=== PATIENT | female | born 1945 | race Caucasian/White ===

== ENCOUNTER 2016-12-18 11:52 | Emergency (ER) | payer MEDICARE ==
[~2016-12-18 11:52] MED LIST: AMIODARONE PO; ATENOLOL; ATENOLOL PO; AUGMENTIN875 MG PO; B-COMPLEX W/VIT1 TA1 PO; BUDEPRION XL150 MG PO; BUPROPION XL150 MG PO; CARDIZEM CD; CARDIZEM CD120 M1 PO; CARDIZEM SR PO; CELEBREX; CELEBREX PO; CELECOXIB200 MG PO; CLARINEX5 MG; CLARINEX5 MG PO; CLINDAMYCIN HC300 MG PO; COUMADIN; COUMADIN PO; COUMADIN6 MG PO; CRESTOR PO; DIATX TABLET5 MG; DOXYCYCLINE HY100 M1 PO; EFFEXOR; FLONASE ALLERG9.9 ML; FLONASE16 GM; GLUCOPHAGE500 M1 PO; GLUCOPHAGE500 MG PO; GUAIFENESIN; HUMIBID-LA600 MG DOB; HYDROCODON-ACE1 EAC7 PO; HYDROCODON-ACE1 EACH PO; IMMODIUM PO; LIPITOR; LISINOPRIL20 MG PO; LYRICA PO; METFORMIN; MULTI-VITAMIN1 TAB; NAMENDA10 MG PO; NASONEX17 GM; NEPHROCAPS QT1 EACH PO; NUCYNTA100 MG PO; PHENERGAN25 M1 PO; PRISTIQ50 MG PO; SELENIUM 100 MCG; VICODIN 5/500 T1 TAB; VICODIN 5/500 T1 TAB PO; VITAL-D RX TABL1 TAB PO; VITAMIN A & D; VITAMIN D 4001 UDTAB; VITAMIN D400 UNI2 PO; WELLBUTRIN PO; WELLBUTRIN XL; ZETIA; ZETIA PO
== END 2016-12-18 12:05 | disposition home or self-care (01) ==
LOC: CED 11:52
DX: S60.411A Abrasion of left index finger, initial encounter (principal); L03.012 Cellulitis of left finger; Z88.2 Allergy status to sulfonamides; W55.01XA Bitten by cat, initial encounter; Y92.9 Unspecified place or not applicable
CPT/HCPCS: 99283

== ENCOUNTER 2017-04-03 16:40 | Emergency (ER) | payer MEDICARE ==
--- NOTE | ~2017-04-03 | EKG ---
PATIENT: SIRIA FRANCOIS UNIT #: [id number] Ventricular Rate: 70 BPM Atrial Rate: 70 BPM P-R Interval: 120 ms QRS Duration: 100 ms Q-T Interval: 466 ms QTC Calculation(Bezet): 503 ms P [place]: 49 degrees Calculated R [place]: 26 degrees Calculated T [place]: 33 degrees Diagnosis Line: Sinus rhythm with occasional Premature ventricular Diagnosis Line: complexes Diagnosis Line: Otherwise normal ECG Diagnosis Line: When compared with ECG of 11-MAY-2016 07:27, Diagnosis Line: Premature ventricular complexes are now Present Diagnosis Line: QT has lengthened Diagnosis Line: Poor data quality Diagnosis Line: Confirmed by CHINTAN PANDEY MD ([id number]) on 04/04/2017 Diagnosis Line: 11:47:13 PM INTERPRETING MD: DANNIE PADGETT
--- NOTE | ~2017-04-03 | CT71 ---
[facility] A Service of [facility] RADIOLOGY TEXT RESULTS PATIENT: SIRIA FRANCOIS LOCATION: [facility] : 49 UNIT #: [id number] AGE: [address]: Gege Garcia MD SEX: F ORDER DR: [id number] [facility] [address] [place], [place] [address] [id number] E MR#: [id number] Acc #: [id number] NAME: SIRIA FRANCOIS : 1945 SEX: F STUDY DATE/TIME: 04/03/2017 18:21 UNIT: [facility] ROOM: STUDY DESCRIPTION: CT Head Wo Contrast Attending Physician: Gege Garcia M.D. Ordering Physician: Gege Garcia M.D. Primary Care Physician: Chico Magdaleno M.D. MEDICAL IMAGING REPORT This report is preliminary unless electronic signature is present EXAM CT head without contrast dated 04/03/2017. COMPARISON CT head without contrast dated 05/07/2016. HISTORY Patient fell and hit head 3-4 weeks ago. Dizziness, weakness since this morning. FINDINGS CT of the head was obtained without contrast in the axial plane as per the protocol. This CT exam was performed with one or more of the following radiation dose reduction techniques: automatic exposure control, adjustment of mA and/or kV according to patient size, and iterative reconstruction. No acute intracranial hemorrhage, space-occupying mass, mass effect, midline shift or hydrocephalus. Atherosclerotic arteriovascular calcifications are noted in the [place], particularly involving bilateral cavernous ICA extending to the supraclinoid portions. Severe right and complete opacification of the left maxillary antra are noted. There is also mucosal thickening in bilateral ethmoid sinuses. Correlate with sinus disease. Nasal septum is deviated to the left. Imaged orbits with the ocular structures are unremarkable. Status post bilateral cataract surgery. IMPRESSION 1. No demonstrable acute intracranial abnormality. 2. Paranasal sinus mucosal thickening is noted, severe on the right and completely opacified left maxillary antra. Correlate with sinusitis. They may also contain polyps, particularly in the left. Dictated by... Billy Hawthorne M.D[facility] A Service of [facility] & [facility] RADIOLOGY TEXT RESULTS PATIENT: SIRIA FRANCOIS LOCATION: [facility] : 49 UNIT #: [id number] AGE: [address]: Gege Garcia MD SEX: F ORDER DR: THIS IS AN ELECTRONICALLY VERIFIED REPORT Billy Hawthorne M.D. at 04/05/2017 3:19 PM CPR/pc TD: 04/04/2017 09:52 JOB #: [id number] MEDICAL IMAGING REPORT Page 1 of 1 COPY
[2017-04-03 17:11] LABS: BASOPHIL% 0.8 % (0-2.5); EOSINOPHIL% 0.6 % (0.0-7.0); HEMOGLOBIN 12.5 gm/dL (12.0-16.0); LYMPHOCYTE# 1.3 X10e3 (1.0-3.5); LYMPHOCYTE% 22.2 % (17.0-45.0); MEAN CORPUSCULAR HEMOGLOBIN 31.4 PG (28-34); MEAN PLATELET VOLUME 9.3 FL (6.5-11.5); MONOCYTE# 0.7 X10e3 (0-1.0); NEUTROPHIL# 3.9 X10e3 (1.5-7.1); NEUTROPHIL% 65.4 % (40-75); PLATELET COUNT 198 X10e3 (140-420); RED BLOOD COUNT 3.99 X10e (3.90-5.30)
[2017-04-03 17:12] LABS: DIFF IND NO
[2017-04-03 17:18] LABS: POC - CKMB 1.5 ng/mL (0.0-7.9); POC - TROPONIN <0.05 ng/mL (<=0.05)
[2017-04-03 17:21] LABS: INR 2.4; PARTIAL THROMBOPLASTIN TIME 30.1 SECONDS (23.5-31.3); PROTHROMBIN TIME (PATIENT) 26.6 SECONDS (10.0-11.7)
[2017-04-03 17:28] LABS: ALBUMIN SERUM 3.6 g/dL (3.5-5.0); BILIRUBIN, DIRECT 0.1 mg/dL (0.0-0.2); BILIRUBIN,INDIRECT 0.1 mg/dL (0.0-0.9); BILIRUBIN,TOTAL 0.2 mg/dL (0.2-2.0); BUN/CREATININE RATIO 15.71; CALCIUM SERUM 8.7 mg/dL (8.4-10.2); CREATININE SERUM 1.4 mg/dL (0.6-1.4); GLOM FILT RATE Estimated 38.2 mL/min (>60); MAGNESIUM 1.9 mg/dL (1.6-3.0); PROTEIN TOTAL SERUM 6.7 g/dL (6.0-8.3)
[2017-04-03 17:49] LABS: URINE SOURCE CLEAN CATCH
[2017-04-03 17:55] LABS: URINE APPEARANCE TURBID; URINE BILIRUBIN NEG (NEG); URINE BLOOD NEG (NEG); URINE COLOR DK YELLOW; URINE GLUCOSE NEG (NEG); URINE KETONE TRACE (NEG); URINE LEUKOCYTE ESTERASE 3+ (NEG); URINE NITRATE NEG (NEG); URINE PH 5.5 (5-8); URINE PROTEIN TRACE (NEG)
[2017-04-03 17:58] LABS: CULTURE INDICATED? YES; URINE SQUAMOUS EPITHELIAL CELL FEW /[HPF]; UWBCS1 AUWI 100-200 (0-5)
[2017-04-03 18:22] LABS: URINE BACTERIA AUWI 2+ (NEGATIVE); URINE CRYSTALS CALCIUM OXALATE /[HPF]; URINE MUCUS PRESENT
[2017-04-03 19:55] LABS: POC - CKMB 2.2 ng/mL (0.0-7.9); POC - TROPONIN <0.05 ng/mL (<=0.05)
== END 2017-04-03 20:17 | disposition home or self-care (01) ==
LOC: CED 16:40
PROVIDERS: Student in an Organized Health Care Education/Training Program
DX: N39.0 Urinary tract infection, site not specified (principal); E78.5 Hyperlipidemia, unspecified; I48.91 Unspecified atrial fibrillation; E11.9 Type 2 diabetes mellitus without complications; Z88.2 Allergy status to sulfonamides
CPT/HCPCS: 36415; 70450; 80048; 80076; 81003; 82553; 83735; 83880; 84484; 85025; 85610; 85730; 87086; 93005; 99285

== ENCOUNTER 2017-05-05 19:12 | Emergency (ER) | payer MEDICARE ==
[~2017-05-05] VITALS: Ht 157.5 cm; Wt 90.3 kg
--- NOTE | ~2017-05-05 | CR210 ---
[facility] A Service of [facility] RADIOLOGY TEXT RESULTS PATIENT: SIRIA FRANCOIS LOCATION: [facility] : 49 UNIT #: [id number] AGE: [address]: Kristopher Haines MD SEX: F ORDER DR: [id number] [facility] [address] [place], [place] [address] [id number] E MR#: [id number] Acc #: [id number] NAME: SIRIA FRANCOIS : 1945 SEX: F STUDY DATE/TIME: 05/05/2017 21:37 UNIT: [facility] ROOM: STUDY DESCRIPTION: CR Ribs Uni 2 View W PA Ch Lt Attending Physician: Kristopher Haines M.D. Ordering Physician: Kristopher Haines M.D. Primary Care Physician: Chico Magdaleno M.D. MEDICAL IMAGING REPORT This report is preliminary unless electronic signature is present EXAM Chest and left ribs, 05/05, at 21:37. INDICATIONS Left side rib pain with shortness of air, and dizziness after a fall today. TECHNIQUE PA chest x-ray was obtained in addition to a left rib series. COMPARISON Comparison made with chest x-ray from 05/06/2016. FINDINGS Cardiomegaly is stable. Again seen is a large hiatal hernia. There are left-side lateral eighth, ninth and tenth rib fractures. There is no pneumothorax. Granuloma in the right base. Lungs otherwise are clear. IMPRESSION Left lateral eighth, ninth and tenth rib fractures. No pneumothorax. Stable cardiomegaly with a large hiatal hernia. Dictated by... Natalio Layton Jr., M.D. THIS IS AN ELECTRONICALLY VERIFIED REPORT Natalio Layton Jr., M.D. at 05/06/2017 10:05 PM MATT/guillermina TD: 05/06/2017 20:07 JOB #: [id number] MEDICAL IMAGING REPORT [facility] A Service of [facility] RADIOLOGY TEXT RESULTS PATIENT: SIRIA FRANCOIS [id number] [birth year] UNIT #: [id number] AGE: [address]: Kristopher Haines MD SEX: F ORDER DR: Page 1 of 1 COPY
--- NOTE | ~2017-05-05 | EKG ---
PATIENT: SIRIA FRANCOIS UNIT #: [id number] Ventricular Rate: 66 BPM Atrial Rate: 66 BPM P-R Interval: 110 ms QRS Duration: 70 ms Q-T Interval: 450 ms QTC Calculation(Bezet): 471 ms P [place]: 36 degrees Calculated R [place]: 32 degrees Calculated T [place]: 51 degrees Diagnosis Line: Sinus rhythm with short [place] Diagnosis Line: Nonspecific ST and T wave abnormality Diagnosis Line: Baseline wander Otherwise normal ECG Diagnosis Line: When compared with ECG of 03-APR-2017 17:01, Diagnosis Line: Premature ventricular complexes are no longer Diagnosis Line: Present Diagnosis Line: QRS duration has decreased Diagnosis Line: Nonspecific T wave abnormality now evident in Diagnosis Line: Lateral leads Diagnosis Line: Confirmed by KEVIN GASCA MD ([id number]) on 05/07/2017 Diagnosis Line: 11:03:21 PM INTERPRETING MD: CAMPOS PADGETT
--- NOTE | ~2017-05-05 | CT71 ---
[facility] A Service of [facility] RADIOLOGY TEXT RESULTS PATIENT: SIRIA FRANCOIS LOCATION: [facility] : 49 UNIT #: [id number] AGE: [address]: Kristopher Haines MD SEX: F ORDER DR: [id number] [facility] [address] [place], [place] [address] [id number] E MR#: [id number] Acc #: [id number] NAME: SIRIA FRANCOIS : 1945 SEX: F STUDY DATE/TIME: 05/05/2017 21:53 UNIT: [facility] ROOM: STUDY DESCRIPTION: CT Head Wo Contrast Attending Physician: Kristopher Haines M.D. Ordering Physician: Kristopher Haines M.D. Primary Care Physician: Chico Magdaleno M.D. MEDICAL IMAGING REPORT This report is preliminary unless electronic signature is present EXAM CT scan of the head without contrast. INDICATIONS Dizziness for a week, progressively getting worse. DATE OF EXAM 05/05/2017 COMPARISON 04/03/2017 TECHNIQUE Unenhanced images were obtained of the brain. This CT exam was performed with one or more of the following radiation dose reduction techniques: automatic exposure control, adjustment of mA and/or kV according to patient size, and iterative reconstruction. FINDINGS There is mild generalized atrophy. There are no masses or extraaxial fluid collections. IMPRESSION Mild atrophy. Otherwise, normal. Dictated by... Shin Lara M.D. THIS IS AN ELECTRONICALLY VERIFIED REPORT Shin Lara M.D. at 05/08/2017 8:50 AM [facility] A Service of [facility] RADIOLOGY TEXT RESULTS PATIENT: SIRIA FRANCOIS LOCATION: [facility] : 49 UNIT #: [id number] AGE: [address]: Kristopher Haines MD SEX: F ORDER DR: Santosh TD: 05/06/2017 20:09 JOB #: [id number] MEDICAL IMAGING REPORT Page 1 of 1 COPY
[2017-05-05 20:02] LABS: BASOPHIL% 0.7 % (0-2.5); DIFF IND NO; EOSINOPHIL# 0.1 X10e3 (0-0.7); EOSINOPHIL% 1.5 % (0.0-7.0); HEMATOCRIT 37.6 % (35.0-45.0); HEMOGLOBIN 12.6 gm/dL (12.0-16.0); LYMPHOCYTE# 1.2 X10e3 (1.0-3.5); LYMPHOCYTE% 24.1 % (17.0-45.0); MEAN CELL VOLUME 94.1 FL (83-96); MEAN CORPUSCULAR HEMOGLOBIN 31.4 PG (28-34); MEAN CORPUSCULAR HGB CONC 33.4 g/dL (30-36); MEAN PLATELET VOLUME 9.2 FL (6.5-11.5); MONOCYTE# 0.6 X10e3 (0-1.0); MONOCYTE% 11.7 % (3.0-12.0); NEUTROPHIL# 3.2 X10e3 (1.5-7.1); PLATELET COUNT 190 X10e3 (140-420); RED BLOOD COUNT 3.99 X10e (3.90-5.30); RED CELL DISTRIBUTION WIDTH 14.6 % (11.0-15.5); WHITE BLOOD COUNT 5.1 X10e3 (4.0-10.5)
[2017-05-05 20:20] LABS: ALBUMIN SERUM 3.4 g/dL (3.5-5.0); BILIRUBIN, DIRECT 0.1 mg/dL (0.0-0.2); BILIRUBIN,INDIRECT 0.6 mg/dL (0.0-0.9); BILIRUBIN,TOTAL 0.7 mg/dL (0.2-2.0); BUN/CREATININE RATIO 10.9; CALCIUM SERUM 8.5 mg/dL (8.4-10.2); CREATININE SERUM 1.1 mg/dL (0.6-1.4); GLOM FILT RATE Estimated 51.2 mL/min (>60); POTASSIUM 3.6 mmol/L (3.5-5.1); PROTEIN TOTAL SERUM 6.3 g/dL (6.0-8.3)
[2017-05-05 21:04] LABS: PROTHROMBIN TIME (PATIENT) 10.8 SECONDS (10.0-11.7)
[2017-05-05 22:45] LABS: URINE SOURCE CLEAN CATCH
[2017-05-05 23:14] LABS: URINE APPEARANCE CLEAR; URINE BILIRUBIN NEG (NEG); URINE BLOOD NEG (NEG); URINE COLOR YELLOW; URINE GLUCOSE NEG (NEG); URINE KETONE 1+ (NEG); URINE LEUKOCYTE ESTERASE 2+ (NEG); URINE NITRATE NEG (NEG); URINE PROTEIN NEG (NEG); URINE SPECIFIC GRAVITY 1.015 (1.003-1.035)
[2017-05-05 23:17] LABS: CULTURE INDICATED? YES; URBCS1 AUWI 0-2 /[HPF] (0-2); URINE BACTERIA AUWI NEG (NEGATIVE); URINE SQUAMOUS EPITHELIAL CELL OCC /[HPF]
== END 2017-05-06 01:15 | disposition short-term general hospital (02) ==
LOC: CED 19:12
PROVIDERS: Emergency Medicine
DX: S22.42XA Multiple fractures of ribs, left side, initial encounter for closed fracture (principal); I48.91 Unspecified atrial fibrillation; E11.9 Type 2 diabetes mellitus without complications; I10 Essential (primary) hypertension; Z90.710 Acquired absence of both cervix and uterus; Z88.2 Allergy status to sulfonamides; X58.XXXA Exposure to other specified factors, initial encounter
CPT/HCPCS: 36415; 70450; 71101; 80048; 80076; 81003; 82947; 85025; 85610; 87086; 93005; 94010; 99285